=== PATIENT | female | born 1955 | race Caucasian/White ===

== ENCOUNTER 2022-10-07 12:03 | Emergency (ER) | payer MEDICARE | END 2022-10-07 13:32 | disposition home or self-care (01) | LOC: JP.ED 12:03 | DX: S93.491A Sprain of other ligament of right ankle, initial encounter (principal); Z98.890 Other specified postprocedural states; X50.1XXA Overexertion from prolonged static or awkward postures, initial encounter; Y93.72 Activity, wrestling | CPT/HCPCS: 73610-26-RT; 73610-RT; 99283 ==